=== PATIENT | male | born 2000 | race Caucasian/White ===

== ENCOUNTER 2023-11-27 09:42 | Inpatient (IN) | payer OTHER ==
[~2023-11-27] VITALS: Ht 182.9 cm; Wt 100.2 kg
[2023-11-27 14:00] VITALS: BP 130/65; PULSE 93; RESP 18; TEMP 98.3; O2SAT 98
[2023-11-27] MEDS ORDERED: MAGNESIUM HYDROXIDE SUSPENSION 30 ML UDCUP PO PRN (14:15)
[2023-11-27] MEDS ORDERED: ACETAMINOPHEN 325 MG TABLET PO PRN (14:15)
[2023-11-27] MEDS ORDERED: OxyCODONE HCL 5 MG IR TABLET PO PRN (14:15)
[2023-11-27] MEDS: IBUPROFEN 800 MG TABLET PO SCH (16:32)
[2023-11-27] MEDS: GABAPENTIN 300 MG CAPSULE PO SCH (16:32)
[2023-11-27 20:00] VITALS: O2SAT 98
[2023-11-27] MEDS: ENOXAPARIN SODIUM 40 MG/0.4 ML PF SYRINGE SQ SCH (20:48)
[2023-11-27] MEDS: ACETAMINOPHEN 325 MG TABLET PO SCH (20:48)
[2023-11-27] MEDS: SENNOSIDES 8.6 MG TABLET PO SCH (20:49)
[2023-11-27] MEDS: DOCUSATE SODIUM 100 MG CAPSULE PO SCH (20:49)
[2023-11-27 20:53] VITALS: BP 139/90; PULSE 112; RESP 18; TEMP 98.1; O2SAT 98
[2023-11-27] MEDS: ETHYL ALCOHOL 62% ANTISEPTIC NASAL SANITIZER 0.6 ML AMPUL NASAL SCH (22:56)
[2023-11-28 07:26] LABS: BASOPHILS % (AUTO) 0.5 % (0.0-2.0); EOSINOPHILS % (AUTO) 1.3 % (1.0-6.0); HEMOGLOBIN 7.5 g/dL (13.5-17.5); LYMPHOCYTES # (AUTO) 1.7 K/uL (1.0-4.8); LYMPHOCYTES % (AUTO) 22.5 % (22.0-44.0); MEAN CORPUSCULAR HEMOGLOBIN 28.3 pg (26.0-34.0); MEAN CORPUSCULAR HGB CONC 32.8 G/dL (31.0-37.0); MEAN CORPUSCULAR VOLUME 86 fL (80-100); MONOCYTES # (AUTO) 0.7 K/uL (0.1-1.0); MONOCYTES % (AUTO) 8.9 % (2.0-9.0); NEUTROPHILS # (AUTO) 4.9 K/uL (1.8-7.7); NEUTROPHILS % (AUTO) 66.8 % (40.0-70.0); PLATELET COUNT (AUTO) 431 K/uL (150-450); RED BLOOD CELL COUNT(AUTO) 2.66 MIL/uL (4.50-5.90); WHITE BLOOD COUNT (AUTO) 7.4 K/uL (4.5-11.0)
[2023-11-28 07:47] LABS: ALANINE AMINOTRANSFERASE 55 U/L (12-78); ALBUMIN 2.7 g/dL (3.4-5.0); ALKALINE PHOSPHATASE 69 U/L (46-116); ANION GAP 7 mmol/L (8-16); ASPARTATE AMINOTRANSFERASE 36 U/L (15-37); BILIRUBIN,TOTAL 0.9 mg/dL (0.1-1.0); CARBON DIOXIDE 27 mmol/L (22-29); CHLORIDE 106 mmol/L (98-107); CREATININE 0.63 mg/dL (0.60-1.30); GLOMERULAR FILTR. RATE CALC > 60 mL/min (>60); GLUCOSE,RANDOM 111 mg/dL (70-110); SODIUM SERUM 140 mmol/L (136-145); TOTAL PROTEIN, SERUM 6.4 g/dL (6.4-8.2); UREA NITROGEN, BLOOD 17 mg/dL (7-18)
[2023-11-28 08:00] VITALS: O2SAT 100
[2023-11-28] MEDS: POLYETHYLENE GLYCOL 3350 17 GM PACKET PO SCH (08:10)
[2023-11-28 08:15] VITALS: BP 117/73; PULSE 89; RESP 18; TEMP 97.6; O2SAT 100
[2023-11-28] MEDS: FERROUS SULFATE 325 MG EC TABLET PO SCH (17:08)
[2023-11-28 20:00] VITALS: BP 121/66; PULSE 87; RESP 18; TEMP 98.2; O2SAT 100
[2023-11-29 08:05] VITALS: BP 132/65; PULSE 90; RESP 18; TEMP 98.4; O2SAT 99
[2023-11-29 10:19] VITALS: O2SAT 98
[2023-11-29 20:00] VITALS: BP 120/71; PULSE 92; RESP 18; TEMP 97.5; O2SAT 99
[2023-11-29] MEDS: MELATONIN 3 MG TABLET PO PRN (21:32)
[2023-11-30 01:47] VITALS: O2SAT 99
[2023-11-30 08:00] VITALS: BP 126/63; PULSE 72; RESP 20; TEMP 98.3; O2SAT 99
[2023-11-30 20:15] VITALS: BP 133/73; PULSE 92; RESP 18; TEMP 97.9; O2SAT 98
[2023-11-30] MEDS: MELATONIN 3 MG TABLET PO PRN (23:23)
[2023-12-01 01:15] VITALS: O2SAT 98
[2023-12-01 08:05] VITALS: BP 117/75; PULSE 82; RESP 18; TEMP 98.2; O2SAT 98
[2023-12-01] MEDS ORDERED: IBUPROFEN 800 MG TABLET PO PRN (10:00)
[2023-12-01 11:41] VITALS: O2SAT 98
[2023-12-01] MEDS: ACETAMINOPHEN 325 MG TABLET PO SCH (13:04)
[2023-12-01 20:01] VITALS: BP 130/72; PULSE 94; RESP 18; TEMP 98.5; O2SAT 99
[2023-12-01 22:22] VITALS: O2SAT 99
[2023-12-02 08:05] VITALS: BP 128/69; PULSE 85; RESP 18; TEMP 98.4; O2SAT 98
[2023-12-02 08:50] LABS: BASOPHILS % (AUTO) 0.4 % (0.0-2.0); EOSINOPHILS % (AUTO) 0.8 % (1.0-6.0); HEMATOCRIT 24.8 % (41-53); HEMOGLOBIN 8.1 g/dL (13.5-17.5); LYMPHOCYTES # (AUTO) 1.3 K/uL (1.0-4.8); LYMPHOCYTES % (AUTO) 17.9 % (22.0-44.0); MEAN CORPUSCULAR HEMOGLOBIN 28.6 pg (26.0-34.0); MEAN CORPUSCULAR HGB CONC 32.7 G/dL (31.0-37.0); MEAN CORPUSCULAR VOLUME 87 fL (80-100); MONOCYTES # (AUTO) 0.6 K/uL (0.1-1.0); MONOCYTES % (AUTO) 7.7 % (2.0-9.0); NEUTROPHILS # (AUTO) 5.3 K/uL (1.8-7.7); NEUTROPHILS % (AUTO) 73.2 % (40.0-70.0); PLATELET COUNT (AUTO) 534 K/uL (150-450); RED BLOOD CELL COUNT(AUTO) 2.84 MIL/uL (4.50-5.90); RED CELL DISTRIBUTION WIDTH 16.3 % (11.5-14.5); WHITE BLOOD COUNT (AUTO) 7.2 K/uL (4.5-11.0)
[2023-12-02 11:55] VITALS: O2SAT 98
[2023-12-02] MEDS ORDERED: ENOX40SY14 SQ (12:12)
[2023-12-02] MEDS ORDERED: FERR325T27 PO (12:12)
[2023-12-02] MEDS ORDERED: ACET325T51 PO (12:12)
[2023-12-02] MEDS ORDERED: GABA-1181 PO (12:12)
[2023-12-03] MEDS ORDERED: ENOXAPARIN SODIUM 40 MG/0.4 ML PF SYRINGE SQ SCH (09:00)
== END 2023-12-02 14:40 | disposition home health service (06) | DRG 533 ==
LOC: 2WR 14:35
PROVIDERS: ADMIT Physical Medicine & Rehabilitation; ATTEND Physical Medicine & Rehabilitation
DX: S72.391B Other fracture of shaft of right femur, initial encounter for open fracture type I or II (principal); S72.491B Other fracture of lower end of right femur, initial encounter for open fracture type I or II; S82.491B Other fracture of shaft of right fibula, initial encounter for open fracture type I or II; S82.041A Displaced comminuted fracture of right patella, initial encounter for closed fracture; S82.391B Other fracture of lower end of right tibia, initial encounter for open fracture type I or II; E46 Unspecified protein-calorie malnutrition; D64.9 Anemia, unspecified; I70.209 Unspecified atherosclerosis of native arteries of extremities, unspecified extremity; M79.604 Pain in right leg; G47.00 Insomnia, unspecified; Z74.09 Other reduced mobility; I95.9 Hypotension, unspecified; R26.9 Unspecified abnormalities of gait and mobility; S62.397A Other fracture of fifth metacarpal bone, left hand, initial encounter for closed fracture; S62.002A Unspecified fracture of navicular [scaphoid] bone of left wrist, initial encounter for closed fracture; S62.182A Displaced fracture of trapezoid [smaller multangular], left wrist, initial encounter for closed fracture; V89.2XXA Person injured in unspecified motor-vehicle accident, traffic, initial encounter; Y93.89 Activity, other specified; Y92.89 Other specified places as the place of occurrence of the external cause; Y99.8 Other external cause status; Z68.30 Body mass index [BMI] 30.0-30.9, adult
CPT/HCPCS: 80053; 85025; 87081; 97110; 97116; 97140; 97150; 97163; 97166; 97530; 97535; 99366; J1650